=== PATIENT | male | born 1975 | race Caucasian/White ===

== ENCOUNTER → 2016-08-30 | Outpatient (REF) | payer BC ==
[2016-08-30 12:03] LABS: ALBUMIN/GLOBULIN RATIO 1.14 (1.00-1.93); ALKALINE PHOSPHATASE 61 U/L (45-117); ALT/SGPT 24 U/L (12-78); ANION GAP 10 MEQ/L (8-16); AST/SGOT 28 U/L (15-37); BILIRUBIN,TOTAL 0.4 MG/DL (0.2-1.0); BLOOD UREA NITROGEN 13 MG/DL (7-18); CALCIUM LEVEL 8.4 MG/DL (8.5-10.1); CARBON DIOXIDE LEVEL 28 MEQ/L (21-32); CHLORIDE LEVEL 103 MEQ/L (98-107); CHOLESTEROL LEVEL 180 MG/DL (<200); CREATININE FOR GFR 1.14 MG/DL (0.70-1.30); GLOMERULAR FILTRATION RATE > 60.0 (>60); GLUCOSE, FASTING 95 MG/DL (70-105); SODIUM LEVEL 141 MEQ/L (136-145); TOTAL PROTEIN 7.5 GM/DL (6.4-8.2); TRIGLYCERIDES LEVEL 559 MG/DL (<150)
== END ==
LOC: M SFHCCLAY 07:14
PROVIDERS: ATTEND Family Medicine
DX: Z00.00 Encounter for general adult medical examination without abnormal findings (principal); Z83.3 Family history of diabetes mellitus

== ENCOUNTER → 2016-10-12 | Outpatient (REF) | payer BC ==
[2016-10-12 11:58] LABS: ALBUMIN 4.4 GM/DL (3.2-5.2); ALBUMIN/GLOBULIN RATIO 1.22 (1.00-1.93); ALKALINE PHOSPHATASE 56 U/L (45-117); ALT/SGPT 26 U/L (12-78); ANION GAP 5 MEQ/L (8-16); AST/SGOT 19 U/L (15-37); BILIRUBIN,TOTAL 0.6 MG/DL (0.2-1.0); BLOOD UREA NITROGEN 16 MG/DL (7-18); CARBON DIOXIDE LEVEL 30 MEQ/L (21-32); CHLORIDE LEVEL 104 MEQ/L (98-107); CHOLESTEROL LEVEL 175 MG/DL (<200); CREATININE FOR GFR 1.24 MG/DL (0.70-1.30); GLOMERULAR FILTRATION RATE > 60.0 (>60); GLUCOSE, FASTING 97 MG/DL (70-105); SODIUM LEVEL 139 MEQ/L (136-145); TRIGLYCERIDES LEVEL 271 MG/DL (<150)
== END ==
LOC: M SFHCCLAY 07:07
PROVIDERS: ATTEND Family Medicine
DX: E78.2 Mixed hyperlipidemia (principal)

== ENCOUNTER → 2017-02-17 | Outpatient (REF) | payer BC ==
[2017-02-17 11:46] LABS: ALBUMIN 4.1 GM/DL (3.2-5.2); ALBUMIN/GLOBULIN RATIO 1.24 (1.00-1.93); ALKALINE PHOSPHATASE 52 U/L (45-117); ALT/SGPT 23 U/L (12-78); ANION GAP 7 MEQ/L (8-16); AST/SGOT 21 U/L (15-37); BILIRUBIN,TOTAL 0.4 MG/DL (0.2-1.0); BLOOD UREA NITROGEN 15 MG/DL (7-18); CALCIUM LEVEL 8.8 MG/DL (8.5-10.1); CARBON DIOXIDE LEVEL 28 MEQ/L (21-32); CHLORIDE LEVEL 105 MEQ/L (98-107); CHOLESTEROL LEVEL 169 MG/DL (<200); CREATININE FOR GFR 1.15 MG/DL (0.70-1.30); GLOMERULAR FILTRATION RATE > 60.0 (>60); GLUCOSE, FASTING 99 MG/DL (70-105); POTASSIUM SERUM 4.1 MEQ/L (3.5-5.1); SODIUM LEVEL 140 MEQ/L (136-145); TOTAL PROTEIN 7.4 GM/DL (6.4-8.2); TRIGLYCERIDES LEVEL 471 MG/DL (<150)
== END ==
LOC: M SFHCCLAY 07:03
PROVIDERS: ATTEND Family Medicine
DX: E78.2 Mixed hyperlipidemia (principal)

== ENCOUNTER → 2017-06-14 | Outpatient (REF) | payer BC ==
[2017-06-14 12:40] LABS: ALBUMIN 4.1 GM/DL (3.2-5.2); ALBUMIN/GLOBULIN RATIO 1.32 (1.00-1.93); ALKALINE PHOSPHATASE 37 U/L (45-117); ALT/SGPT 24 U/L (12-78); ANION GAP 6 MEQ/L (8-16); AST/SGOT 20 U/L (15-37); BILIRUBIN,TOTAL 0.5 MG/DL (0.2-1.0); BLOOD UREA NITROGEN 18 MG/DL (7-18); CALCIUM LEVEL 8.9 MG/DL (8.5-10.1); CARBON DIOXIDE LEVEL 27 MEQ/L (21-32); CHLORIDE LEVEL 106 MEQ/L (98-107); CHOLESTEROL LEVEL 178 MG/DL (<200); CREATININE FOR GFR 1.32 MG/DL (0.70-1.30); GLOMERULAR FILTRATION RATE > 60.0 (>60); GLUCOSE, FASTING 103 MG/DL (70-105); POTASSIUM SERUM 4.3 MEQ/L (3.5-5.1); SODIUM LEVEL 139 MEQ/L (136-145); TOTAL PROTEIN 7.2 GM/DL (6.4-8.2); TRIGLYCERIDES LEVEL 223 MG/DL (<150)
== END ==
LOC: M SFHCCLAY 07:10
PROVIDERS: ATTEND Family Medicine
DX: Z00.00 Encounter for general adult medical examination without abnormal findings (principal); E78.2 Mixed hyperlipidemia; Z83.3 Family history of diabetes mellitus

== ENCOUNTER → 2018-08-09 | Outpatient (REF) | payer BC ==
[2018-08-09 11:44] LABS: ALBUMIN/GLOBULIN RATIO 1.21 (1.00-1.93); ALKALINE PHOSPHATASE 46 U/L (45-117); ALT/SGPT 24 U/L (12-78); ANION GAP 6 MEQ/L (8-16); AST/SGOT 23 U/L (7-37); BILIRUBIN,TOTAL 0.4 MG/DL (0.2-1.0); BLOOD UREA NITROGEN 14 MG/DL (7-18); CALCIUM LEVEL 8.5 MG/DL (8.5-10.1); CARBON DIOXIDE LEVEL 28 MEQ/L (21-32); CHLORIDE LEVEL 106 MEQ/L (98-107); CHOLESTEROL LEVEL 165 MG/DL (<200); CHOLESTEROL RISK RATIO 4.852 (<5); GLOMERULAR FILTRATION RATE > 60.0 (>60); GLUCOSE, FASTING 95 MG/DL (70-100); HDL CHOLESTEROL 34 MG/DL (>40); LDL CHOLESTEROL 95 MG/DL (<100); NON-HDL-C 131 MG/DL; POTASSIUM SERUM 4.3 MEQ/L (3.5-5.1); SODIUM LEVEL 140 MEQ/L (136-145); TOTAL PROTEIN 7.3 GM/DL (6.4-8.2); TRIGLYCERIDES LEVEL 181 MG/DL (<150)
[2018-08-09 12:04] LABS: ESTIMATED AVERAGE GLUCOSE 114 MG/DL (60-110); HEMOGLOBIN A1c 5.6 %
== END ==
LOC: M SFHCCLAY 07:17
DX: E78.2 Mixed hyperlipidemia (principal); R73.01 Impaired fasting glucose
CPT/HCPCS: 80053

== ENCOUNTER → 2018-08-23 | Outpatient (CLI) | payer BC ==
--- NOTE | 2018-08-23 16:24 | REP ---
BILATERAL HIP SERIES: AP and frog leg views of the bilateral hips were performed. There is no acute fracture or dislocation bilaterally. There is mild joint space narrowing and subchondral sclerosis indicating mild bilateral arthritic change in a fairly symmetrical pattern. There is also a small calcific density at the superolateral acetabular margin bilaterally representing either unfused ossicles or small amount of labral calcification. IMPRESSION: Mild bilateral degenerative changes.
== END ==
LOC: M CLY 15:08
PROVIDERS: ATTEND Family Medicine
DX: M25.551 Pain in right hip (principal); M25.552 Pain in left hip

== ENCOUNTER → 2019-06-27 | Outpatient (REF) | payer BC ==
[2019-06-27 12:27] LABS: ALBUMIN 4.2 GM/DL (3.2-5.2); ALT/SGPT 31 U/L (12-78); BILIRUBIN,TOTAL 0.5 MG/DL (0.2-1.0); BLOOD UREA NITROGEN 23 MG/DL (7-18); CALCIUM LEVEL 9.2 MG/DL (8.5-10.1); CARBON DIOXIDE LEVEL 27 MEQ/L (21-32); CHLORIDE LEVEL 109 MEQ/L (98-107); CHOLESTEROL LEVEL 189 MG/DL (<200); CHOLESTEROL RISK RATIO 4.725 (<5); CREATININE FOR GFR 1.17 MG/DL (0.70-1.30); GLOMERULAR FILTRATION RATE > 60.0 (>60); GLUCOSE, FASTING 108 MG/DL (70-100); HDL CHOLESTEROL 40 MG/DL (>40); LDL CHOLESTEROL 117 MG/DL (<100); NON-HDL-C 149 MG/DL; POTASSIUM SERUM 4.6 MEQ/L (3.5-5.1); SODIUM LEVEL 141 MEQ/L (136-145); TOTAL PROTEIN 7.5 GM/DL (6.4-8.2); TRIGLYCERIDES LEVEL 158 MG/DL (<150)
[2019-06-27 14:33] LABS: HEMOGLOBIN A1c 5.5 %
== END ==
LOC: M SFHCCLAY 07:13
PROVIDERS: ATTEND Family Medicine
DX: R73.01 Impaired fasting glucose (principal); E78.2 Mixed hyperlipidemia

== ENCOUNTER → 2020-04-11 | Outpatient (CLI) | payer OTHER, BC | LOC: M LABSMTC 09:10 | PROVIDERS: ATTEND Orthopaedic Surgery | DX: Z11.59 Encounter for screening for other viral diseases (principal) | CPT/HCPCS: C9803; U0003 ==

== ENCOUNTER → 2020-10-29 | Outpatient (REF) | payer BC ==
[2020-10-29 11:54] LABS: FREE T4 0.92 NG/DL (0.76-1.46); THYROID STIMULATING HORMONE 0.941 uIU/ML (0.358-3.740); TOTAL T3 104.7 NG/DL (60.0-181.0)
[2020-10-29 15:27] LABS: HEMOGLOBIN A1c 5.2 %
[2020-10-30 16:08] LABS: TESTOSTERONE FREE (DIRECT) 11.8 pg/mL (6.8-21.5)
== END ==
LOC: M SFHCCLAY 08:12
PROVIDERS: ATTEND Family Medicine
DX: R23.2 Flushing (principal); R63.4 Abnormal weight loss; R73.01 Impaired fasting glucose

== ENCOUNTER 2020-11-30 22:50 | Inpatient (IN) | payer BC ==
[~2020-11-30] VITALS: Ht 182.9 cm; Wt 3.0 kg
--- NOTE | 2020-11-30 23:20 | ED PDOC ---
Post-Departure Follow-Up DR BYRNES AT BEDSIDE UPON PATIENT ARRIVAL TO ED. NO [facility] VALDEMAR CABRAL, DO Nov 30, 2020 23:20
[2020-11-30 23:25] LABS: BASO % 0.3 % (0.0-1.0); EOS # 0.1 10^3/uL (0.0-0.5); EOS % 1.2 % (0.0-3.0); HEMATOCRIT 40.3 % (42.0-52.0); HEMOGLOBIN 13.3 g/dl (13.5-17.5); LYMPH % 17.4 % (24.0-44.0); MEAN CORPUSCULAR HEMOGLOBIN 29.4 pg (27.0-33.0); MEAN CORPUSCULAR VOLUME 89.2 fl (80.0-96.0); MONO # 0.6 10^3/uL (0.0-0.8); MONO % 4.9 % (2.0-8.0); NEUTROPHILS # 8.7 10^3/uL (1.5-8.5); NEUTROPHILS % 75.8 % (36.0-66.0); PLATELET COUNT, AUTOMATED 155 10^3/uL (150-450); RED BLOOD COUNT 4.52 10^6/uL (4.30-6.10); WHITE BLOOD COUNT 11.4 10^3/uL (4.0-10.0)
[2020-11-30] MEDS ORDERED: FENO1CAP16 PO (23:45)
[2020-11-30] MEDS ORDERED: FENO160T10 PO (23:54)
[2020-11-30] MEDS ORDERED: ACETAMINOPHEN TAB 650MG DOSE (2X325MG) PO PRN (23:55)
[2020-11-30] MEDS ORDERED: ONDANSETRON 4 MG TAB PO PRN (23:55)
[2020-11-30] MEDS ORDERED: ONDANSETRON 4MG/2ML VIAL IV PRN (23:55)
[2020-11-30] MEDS ORDERED: cefTRIAXone SOD 1 GM in D5W MINI-BAG PLUS 50 ML IV ONE (23:55)
[2020-11-30 23:58] LABS: ALBUMIN 3.8 GM/DL (3.2-5.2); ALT/SGPT 17 U/L (12-78); BILIRUBIN,DIRECT 0.1 MG/DL (0.0-0.2); BILIRUBIN,TOTAL 0.4 MG/DL (0.2-1.0); BLOOD UREA NITROGEN 10 MG/DL (7-18); CALCIUM LEVEL 8.1 MG/DL (8.5-10.1); CARBON DIOXIDE LEVEL 26 MEQ/L (21-32); CHLORIDE LEVEL 109 MEQ/L (98-107); CREATININE FOR GFR 0.98 MG/DL (0.70-1.30); GLOMERULAR FILTRATION RATE > 60.0 (>60); GLUCOSE, FASTING 94 MG/DL (70-100); LIPASE 70 U/L (73-393); POTASSIUM SERUM 3.8 MEQ/L (3.5-5.1); SODIUM LEVEL 141 MEQ/L (136-145); TOTAL PROTEIN 6.6 GM/DL (6.4-8.2)
[2020-12-01 00:17] LABS: RSV AMPLIFICATION NEGATIVE (NEGATIVE)
[2020-12-01] MEDS: NS 1,000 ML IV SCH ×4 (00:26→21:47)
[2020-12-01] MEDS: MORPHINE 2 MG/ML 1ML VIAL (J2270) IV PRN ×5 (00:27→21:46)
[2020-12-01 01:05] VITALS: BP 138/80
[2020-12-01] MEDS: metroNIDAZOLE 500 MG in IV 1 EA IV SCH ×3 (02:15→17:39)
[2020-12-01] MEDS: CIPROFLOXACIN 400 MG in IV 1 EA IV SCH ×2 (03:59→15:32)
[2020-12-01 06:00] VITALS: BP 125/73
[2020-12-01 06:47] LABS: HEMATOCRIT 38.7 % (42.0-52.0); HEMOGLOBIN 12.4 g/dl (13.5-17.5); MEAN CORPUSCULAR VOLUME 90.4 fl (80.0-96.0); PLATELET COUNT, AUTOMATED 138 10^3/uL (150-450); RED BLOOD COUNT 4.28 10^6/uL (4.30-6.10); WHITE BLOOD COUNT 7.5 10^3/uL (4.0-10.0)
[2020-12-01 07:10] LABS: BLOOD UREA NITROGEN 10 MG/DL (7-18); CALCIUM LEVEL 7.5 MG/DL (8.5-10.1); CARBON DIOXIDE LEVEL 26 MEQ/L (21-32); CHLORIDE LEVEL 110 MEQ/L (98-107); CREATININE FOR GFR 0.99 MG/DL (0.70-1.30); GLOMERULAR FILTRATION RATE > 60.0 (>60); GLUCOSE, FASTING 97 MG/DL (70-100); POTASSIUM SERUM 3.7 MEQ/L (3.5-5.1); SODIUM LEVEL 140 MEQ/L (136-145)
[2020-12-01] MEDS: PANTOPRAZOLE 40MG VIAL (C9113 PER 1) IV SCH (08:21)
--- NOTE | 2020-12-01 09:03 | HPE ---
HISTORY AND PHYSICAL DATE OF ADMISSION: 11/30/2020 CHIEF COMPLAINT: Diverticulitis. BRIEF HISTORY OF PRESENT ILLNESS: The patient is a 45-year-old male who presents with 24 hour history of abdominal pain. He has had several episodes of diverticulitis in the past. This episode seemed to be worse, however has not gotten any worse since earlier today. He has not had any fevers or chills. He has not been tachycardic and no hypotension. He was seen at an Urgent Care and they did not have access to imaging, thus was referred to [facility] where he underwent a CT scan of the abdomen and pelvis and after several hours was diagnosed with evidence of diverticular perforation with some air outside the bowel lumen. He states that all of his abdominal pain, however has been in the left lower quadrant and has continued to be in that area. PAST MEDICAL HISTORY: Significant for a history of knee surgery, history of back surgery, history of hypertriglyceridemia. MEDICATIONS: Fenofibrate. ALLERGIES: Toradol and Tramadol. PHYSICAL EXAMINATION: A 45-year-old male who looks stated age. HEENT is unremarkable. Neck is supple without adenopathy. Lungs are clear to auscultation without crackles, wheezes or rhonchi. Heart is regular. Abdomen is softly distended, tympanitic in the epigastric area and the right side of the abdomen. It really is not tender nor is the epigastric area. All of his tenderness is in the left lower quadrant with some guarding and localized peritoneal signs. Extremities are warm and well-perfused. IMPRESSION/PLAN: Patient has evidence of diverticulitis, however given his presentation, overall he states he has not had any progression of his symptoms. I have discussed with him several options, one of which is to proceed with operative intervention at this time and most likely proceeding with a colectomy/colostomy and reversal of that at some point in the ensuing few months. Otherwise, I have offered him the possibility of antibiotic treatment, will see how he does at this point and observe him over the ensuing few hours as well. If he has progression of this disease or symptoms, we can still bring him to the Operating Room but I have instructed him and his who is on the phone that our goal is to avoid any sepsis or progression of infection. He understands that he will probably need a prolonged hospital stay given the amount of infection present and that he has a very high likelihood of having an abscess develop that may need percutaneous drainage and still may end up with operative intervention with colectomy and colostomy. He understands the current plan and will start with antibiotics at this time and see how he is doing. His white count did drop from 14.3 at the outside hospital down to 11.9 here today. We will get some follow-up labs in the morning and continue with aggressive antibiotic treatment with fluid resuscitation.
[2020-12-01 10:00] VITALS: BP 113/67
--- NOTE | 2020-12-01 11:40 | IPN ---
PROGRESS NOTE DATE: 12/01/2020 SUBJECTIVE: The patient was admitted in the middle of the night last night for diverticulitis with perforation and at that time his white count had dropped from [facility] to here down to 11.9 and he was complaining of localized left sided pain. Since that time, his white count has dropped again down to 7.5 and he has been afebrile. He has had good urine output and he complains of pain still in the left lower quadrant which is crampy at times, severe at times but then settles down. He states the rest of his abdomen is not causing pain or discomfort and he feels a little less distended than he did last night. OBJECTIVE: The right side of the abdomen is distended and tympanitic but not tender. No guarding. No rebound. No peritoneal signs appreciated all across the right side of the abdomen, epigastric area and the left upper quadrant, however in the left lower quadrant he still has some tenderness and pain and some guarding in this area consistent with last night although I do feel this is mildly improved. IMPRESSION/PLAN: Patient seems to have had some improvement with at least laboratory and some very minimal improvement clinically but definitely no progression of his disease or progression of his perforation that I can see at this point. Given the current findings and his overall status and he seems to be moving around adequately at this time I do feel that we will keep him NPO, IV fluids, IV antibiotics and will see how he does. I had this discussion with him again concerning his current position and our plan for nonoperative treatment, discussing the pros and cons of operative intervention including colectomy, colostomy, etc. He understands and would like to continue on our current course as well.
[2020-12-01 14:00] VITALS: BP 111/64
[2020-12-01 18:00] VITALS: BP 114/64
[2020-12-01 22:00] VITALS: BP 113/60
[2020-12-02] MEDS ORDERED: metroNIDAZOLE/NACL 500MG(5MG/ML) 100ML BAG (S0030) As Ordered ONE (01:49)
[2020-12-02] MEDS: metroNIDAZOLE 500 MG in IV 1 EA IV SCH ×3 (02:56→17:56)
[2020-12-02] MEDS: CIPROFLOXACIN 400 MG in IV 1 EA IV SCH ×2 (03:03→16:08)
[2020-12-02] MEDS: MORPHINE 2 MG/ML 1ML VIAL (J2270) IV PRN ×2 (03:07→21:47)
[2020-12-02] MEDS: NS 1,000 ML IV SCH (03:07)
[2020-12-02 06:00] VITALS: BP 130/65
[2020-12-02 06:14] LABS: HEMATOCRIT 37.7 % (42.0-52.0); MEAN CORPUSCULAR HGB CONC 31.8 g/dl (32.0-36.5); MEAN CORPUSCULAR VOLUME 91.1 fl (80.0-96.0); PLATELET COUNT, AUTOMATED 129 10^3/uL (150-450); RED BLOOD COUNT 4.14 10^6/uL (4.30-6.10); WHITE BLOOD COUNT 6.8 10^3/uL (4.0-10.0)
[2020-12-02 06:41] LABS: BLOOD UREA NITROGEN 9 MG/DL (7-18); CALCIUM LEVEL 8.3 MG/DL (8.5-10.1); CARBON DIOXIDE LEVEL 28 MEQ/L (21-32); CHLORIDE LEVEL 109 MEQ/L (98-107); CREATININE FOR GFR 1.04 MG/DL (0.70-1.30); GLOMERULAR FILTRATION RATE > 60.0 (>60); GLUCOSE, FASTING 83 MG/DL (70-100); POTASSIUM SERUM 3.7 MEQ/L (3.5-5.1); SODIUM LEVEL 139 MEQ/L (136-145)
[2020-12-02] MEDS: PANTOPRAZOLE 40MG VIAL (C9113 PER 1) IV SCH (09:17)
[2020-12-02 14:00] VITALS: BP 121/66
[2020-12-02 22:00] VITALS: BP 136/79
[2020-12-03 02:00] VITALS: BP 114/65
[2020-12-03] MEDS: metroNIDAZOLE 500 MG in IV 1 EA IV SCH ×3 (02:16→17:20)
[2020-12-03] MEDS: CIPROFLOXACIN 400 MG in IV 1 EA IV SCH ×2 (03:39→15:02)
[2020-12-03 05:54] VITALS: BP 118/68
[2020-12-03 07:57] LABS: HEMATOCRIT 37.3 % (42.0-52.0); HEMOGLOBIN 12.3 g/dl (13.5-17.5); MEAN CORPUSCULAR HEMOGLOBIN 29.1 pg (27.0-33.0); MEAN CORPUSCULAR VOLUME 88.2 fl (80.0-96.0); PLATELET COUNT, AUTOMATED 145 10^3/uL (150-450); RED BLOOD COUNT 4.23 10^6/uL (4.30-6.10); WHITE BLOOD COUNT 6.4 10^3/uL (4.0-10.0)
[2020-12-03 08:19] LABS: BLOOD UREA NITROGEN 9 MG/DL (7-18); CALCIUM LEVEL 8.7 MG/DL (8.5-10.1); CARBON DIOXIDE LEVEL 25 MEQ/L (21-32); CHLORIDE LEVEL 109 MEQ/L (98-107); CREATININE FOR GFR 0.97 MG/DL (0.70-1.30); GLOMERULAR FILTRATION RATE > 60.0 (>60); GLUCOSE, FASTING 98 MG/DL (70-100); SODIUM LEVEL 140 MEQ/L (136-145)
[2020-12-03] MEDS: PANTOPRAZOLE 40MG VIAL (C9113 PER 1) IV SCH (08:29)
[2020-12-03 10:00] VITALS: BP 123/70
[2020-12-03 14:00] VITALS: BP 121/71
[2020-12-03 18:00] VITALS: BP 130/75
[2020-12-03 20:48] VITALS: BP 122/71
[2020-12-04] MEDS: metroNIDAZOLE 500 MG in IV 1 EA IV SCH (01:42)
[2020-12-04 01:44] VITALS: BP 121/72
[2020-12-04] MEDS: CIPROFLOXACIN 400 MG in IV 1 EA IV SCH (03:01)
[2020-12-04 06:00] VITALS: BP 123/72
[2020-12-04 07:05] LABS: HEMATOCRIT 37.6 % (42.0-52.0); HEMOGLOBIN 12.6 g/dl (13.5-17.5); MEAN CORPUSCULAR HEMOGLOBIN 29.5 pg (27.0-33.0); MEAN CORPUSCULAR HGB CONC 33.5 g/dl (32.0-36.5); MEAN CORPUSCULAR VOLUME 88.1 fl (80.0-96.0); PLATELET COUNT, AUTOMATED 165 10^3/uL (150-450); RED BLOOD COUNT 4.27 10^6/uL (4.30-6.10)
[2020-12-04 07:30] LABS: BLOOD UREA NITROGEN 10 MG/DL (7-18); CALCIUM LEVEL 8.6 MG/DL (8.5-10.1); CARBON DIOXIDE LEVEL 24 MEQ/L (21-32); CHLORIDE LEVEL 111 MEQ/L (98-107); GLOMERULAR FILTRATION RATE > 60.0 (>60); GLUCOSE, FASTING 96 MG/DL (70-100); SODIUM LEVEL 142 MEQ/L (136-145)
[2020-12-04] MEDS ORDERED: METR-265 PO (08:18)
[2020-12-04] MEDS ORDERED: CIPR-249 PO (08:18)
--- NOTE | 2020-12-04 08:33 | IPN ---
PROGRESS NOTE DATE: 12/02/2020 SUBJECTIVE: The patient's white count again is normalized at 6.8, seems to be doing well from a physical exam standpoint and pain standpoint slowly but improving. Vitals have been stable. I and O's reveal a good urine output and he is developing some flatus. He is hoping to advance his diet. OBJECTIVE: Abdomen is less distended than it was yesterday without guarding, without rebound, without peritoneal signs. Still mildly distended with some tympany but tenderness is still localized to the left side. The left lower quadrant area is pin machine tender throughout this area but less than it was yesterday. IMPRESSION/PLAN: Patient has resolving diverticulitis since he has had some flatus and he looks clinically better, I do feel that it is reasonable to start him on a clear liquid diet. However, I do feel that he is still at higher risk for postoperative abscess and will watch him closely and slowly advance his diet. At this point, will see how he does over the ensuing 24 hours determining his next course of action/recommendations based on this.
[2020-12-04] MEDS ORDERED: PANTOPRAZOLE 40MG TAB (PROTONIX) PO SCH (09:00)
--- NOTE | 2020-12-04 09:33 | IPN ---
PROGRESS NOTE DATE: 12/03/2020 SUBJECTIVE: The patient's white count continues to be normalized. His vitals have been stable and afebrile. Good urine output, more flatus and overall feels better each day. OBJECTIVE: His abdomen is having decreased distention, decreasing tenderness and much less than it was at the time of admission and continues to be clinically improving on a daily basis. IMPRESSION/PLAN: Patient has resolving diverticulitis. At this point my recommendation is to continue with IV antibiotics. Will start him on a full liquid diet, advance him to a low residue diet when he feels he is tolerating the full liquid diet well and probably discharge to home tomorrow. We have had a long discussion concerning follow-up studies, etc and at this point with a normalized white count and decreasing pain on a daily basis and clinical improvement, I do feel we can forgo repeat x-rays unless we have an increasing white count or fevers, then I would recommend repeating the CT scan. The patient understands and will see how he does over the next 24 hours.
--- NOTE | 2020-12-04 09:49 | DSES ---
DISCHARGE SUMMARY DATE OF ADMISSION: 11/30/2020 DATE OF DISCHARGE: 12/04/2020 PRINCIPAL DIAGNOSIS: 1. Perforated diverticulitis. ASSOCIATED DIAGNOSIS: 1. History of orthopedic surgery. 2. Back surgery. 3. Knee surgery. 4. History of triglyceridemia. HISTORY OF PRESENT ILLNESS: Patient is a 45-year-old male who has had diverticulitis in the past, however developed significant pain and discomfort 24 hours prior to admission. It seemed to get worse earlier on the day of admission about noon. Since that time, he went to Urgent Care and then went to [facility], had a CT scan and showed some air bubbles outside the lumen consistent with a perforation, however presents with not generalized peritonitis but localized peritonitis in the left lower quadrant. HOSPITAL COURSE SUMMARY: The patient was admitted with the above diagnosis and after a long discussion and evaluation the patient was treated with IV fluids, IV antibiotics and over the ensuing few hours had some mild improvement, however 24 hours later the patient had progressive significant improvement and continued to have improvement on a daily basis. His white count normalized on the second hospital day and he started having flatus, his diet was slowly progressed and he was tolerating a low residue diet at the time of discharge. He was discharged home on Cipro and Flagyl as well as his usual medications. He has a follow-up with GI next week to schedule a colonoscopy and follow-up with General Surgery in 2-3 weeks for reevaluation. He is to return to the office or the Emergency Room if he has increasing pain, discomfort, fevers or chills.
== END 2020-12-04 10:32 | disposition home or self-care (01) | DRG 244 ==
LOC: M ED 22:50 → M ED INP 23:54 → ENRESERV 12-01 00:57 → M MS5PR 12-01 01:05
PROVIDERS: ADMIT Surgery; ATTEND Surgery
DX: K57.20 Diverticulitis of large intestine with perforation and abscess without bleeding (principal)

== ENCOUNTER 2021-01-22 17:20 | Emergency (ER) | payer BC ==
[~2021-01-22] VITALS: Ht 182.9 cm; Wt 89.2 kg
[~2021-01-22 17:20] MED LIST: CIPR-249 PO; FENO160T10 PO; FENO1CAP16 PO; METR-265 PO
[2021-01-22 19:38] LABS: BASO % 0.2 % (0.0-1.0); EOS # 0.1 10^3/uL (0.0-0.5); EOS % 0.9 % (0.0-3.0); HEMATOCRIT 47.7 % (42.0-52.0); HEMOGLOBIN 15.8 g/dl (13.5-17.5); LYMPH # 1.8 10^3/uL (1.5-5.0); LYMPH % 13.7 % (24.0-44.0); MEAN CORPUSCULAR HEMOGLOBIN 29.4 pg (27.0-33.0); MEAN CORPUSCULAR HGB CONC 33.1 g/dl (32.0-36.5); MEAN CORPUSCULAR VOLUME 88.7 fl (80.0-96.0); MONO # 0.6 10^3/uL (0.0-0.8); MONO % 4.5 % (2.0-8.0); NEUTROPHILS # 10.4 10^3/uL (1.5-8.5); NEUTROPHILS % 80.3 % (36.0-66.0); PLATELET COUNT, AUTOMATED 184 10^3/uL (150-450); RED BLOOD COUNT 5.38 10^6/uL (4.30-6.10); WHITE BLOOD COUNT 12.9 10^3/uL (4.0-10.0)
[2021-01-22 20:09] LABS: ALBUMIN 4.2 GM/DL (3.2-5.2); ALT/SGPT 35 U/L (12-78); BILIRUBIN,DIRECT 0.2 MG/DL (0.0-0.2); BILIRUBIN,TOTAL 0.9 MG/DL (0.2-1.0); BLOOD UREA NITROGEN 10 MG/DL (7-18); CALCIUM LEVEL 9.2 MG/DL (8.5-10.1); CARBON DIOXIDE LEVEL 25 MEQ/L (21-32); CHLORIDE LEVEL 106 MEQ/L (98-107); CREATININE FOR GFR 0.95 MG/DL (0.70-1.30); GLOMERULAR FILTRATION RATE > 60.0 (>60); GLUCOSE, FASTING 86 MG/DL (70-100); LIPASE 45 U/L (73-393); SODIUM LEVEL 139 MEQ/L (136-145); TOTAL PROTEIN 7.8 GM/DL (6.4-8.2)
[2021-01-22] MEDS ORDERED: ISOVUE-370 76% 100ML VIAL As Ordered ONE (20:28)
[2021-01-22] MEDS ORDERED: ONDANSETRON 4MG/2ML VIAL IV ONE (20:30)
[2021-01-22] MEDS ORDERED: MORPHINE 4 MG/ML 1ML VIAL/SYRINGE (J2270) IV PRN (20:30)
--- NOTE | 2021-01-22 21:00 | REPVR ---
PROCEDURE INFORMATION: Exam: CT Abdomen And Pelvis With Contrast Exam date and time: 01/22/2021 8:38 PM Age: 45 years old Clinical indication: Abdominal pain; Localized; Left lower quadrant (llq); Additional info: Llq abd pain, w/ peritoneal signs, eval for perf TECHNIQUE: Imaging protocol: Computed tomography of the abdomen and pelvis with contrast. Radiation optimization: All CT scans at this facility use at least one of these dose optimization techniques: automated exposure control; mA and/or kV adjustment per patient size (includes targeted exams where dose is matched to clinical indication); or iterative reconstruction. Contrast material: ISOVUE 370; Contrast volume: 100 ml; Contrast route: INTRAVENOUS (IV); COMPARISON: CR HIP COMPLETE (AP/LAT) 08/23/2018 3:13 PM FINDINGS: Liver: There is a diffuse decrease in hepatic parenchymal density, consistent with steatosis. Gallbladder and bile ducts: Normal. No calcified stones. No ductal dilation. Pancreas: Normal. No ductal dilation. Spleen: Normal. No splenomegaly. Adrenal glands: Normal. No mass. Kidneys and ureters: Simple cyst right kidney measures 1.9 cm. No follow-up necessary. Kidneys otherwise unremarkable. Stomach and bowel: Unremarkable. No obstruction. No mucosal thickening. Appendix: No evidence of appendicitis. Intraperitoneal space: There is a segment of acute inflammation in the distal left colon and adjacent pericolonic fat without evidence of a drainable abscess or free air, consistent with acute diverticulitis. Vasculature: Unremarkable. No abdominal aortic aneurysm. Lymph nodes: Unremarkable. No enlarged lymph nodes. Urinary bladder: Unremarkable as visualized. Reproductive: The prostate gland demonstrates mild hyperplasia. Bones/joints: Mild retrolisthesis of L5 on S1. Soft tissues: Small left inguinal hernia without incarceration. IMPRESSION: 1. There is a diffuse decrease in hepatic parenchymal density, consistent with steatosis. 2. There is a segment of acute inflammation in the distal left colon and adjacent pericolonic fat without evidence of a drainable abscess or free air, consistent with acute diverticulitis. 3. Mild prostatic hyperplasia. COMMENTS: Consistent with the [employer]'s Incidental Findings Committee white paper (J Am Deneen Radiol 2018): Any incidental renal lesion less than 1 cm or classified as too small to characterize, or any incidental cystic renal lesion characterized as simple-appearing, is likely benign. No follow-up imaging is recommended for these lesions per consensus recommendations based on imaging criteria. Electronically signed by: Umberto Germain On 01/22/2021 21:00:15 PM
[2021-01-22] MEDS ORDERED: CIPR-249 PO (21:59)
[2021-01-22] MEDS ORDERED: FLAG500T PO (21:59)
[2021-01-22 22:00] VITALS: BP 115/70
[2021-01-22] MEDS ORDERED: CIPROFLOXACIN 500MG TABLET PO ONE (22:00)
[2021-01-22] MEDS ORDERED: OXYCODONE/APAP 5MG/325MG(BULK FOR ED) 1 TABLET PO ONE (22:00)
[2021-01-22] MEDS ORDERED: metroNIDAZOLE (FLAGYL) 500MG TABLET PO ONE (22:00)
--- NOTE | 2021-01-23 09:43 | ED PDOC ---
Post-Departure Follow-Up radiology repor tfaxed to Viv Sánchez MD January 23, 2021 09:43
== END 2021-01-22 22:23 | disposition home or self-care (01) ==
LOC: M ED 17:20
DX: K57.32 Diverticulitis of large intestine without perforation or abscess without bleeding (principal); N40.0 Benign prostatic hyperplasia without lower urinary tract symptoms; E78.5 Hyperlipidemia, unspecified; F17.220 Nicotine dependence, chewing tobacco, uncomplicated; Z88.6 Allergy status to analgesic agent; Z79.899 Other long term (current) drug therapy
CPT/HCPCS: 74177; 80048; 80076; 83605; 83690; 85025; 87040; 96374; 96375; 99284; J2270; J2405; Q9967

== ENCOUNTER → 2021-02-06 | Outpatient (CLI) | payer BC ==
[~2021-02-06] MED LIST changes: +FLAG500T PO
== END ==
LOC: M LABSMTC 11:21
PROVIDERS: ATTEND Anesthesiology
DX: Z01.812 Encounter for preprocedural laboratory examination (principal); Z20.822 Contact with and (suspected) exposure to COVID-19

== ENCOUNTER 2021-02-11 10:28 | Day surgery (SDC) | payer BC ==
[~2021-02-11] VITALS: Ht 182.9 cm; Wt 85.9 kg
[~2021-02-11 10:28] MED LIST changes: +NS 1,000 ML IV ONE
[2021-02-11] MEDS ORDERED: propofoL 200 MG/20 ML VIAL As Ordered ONE (11:54)
[2021-02-11] MEDS ORDERED: LIDOCAINE 2% 100MG/5ML SDV (FOR ANES.) As Ordered ONE (11:54)
[2021-02-11] MEDS ORDERED: fentaNYL 100 MCG/2 ML INJECTION (J3010) As Ordered ONE (11:55)
--- NOTE | 2021-02-11 12:42 | ROOR ---
Patient Name: Sarath Castaneda Procedure Date: 02/11/2021 12:01 PM Date of : 1975 Age: 45 Room: [facility] Gender: Male Note Status: Finalized Procedure: Upper GI endoscopy Indications: Dyspepsia, Weight loss Providers: Richard Royal MD Referring MD: BALTA CAMPBELL DO Requesting Provider: Medicines: Monitored Anesthesia Care Complications: No immediate complications. Procedure: Pre-Anesthesia Assessment: - Prior to the procedure, a History and Physical was performed, and patient medications and allergies were reviewed. The patient is competent. The risks and benefits of the procedure and the sedation options and risks were discussed with the patient. All questions were answered and informed consent was obtained. Patient identification and proposed procedure were verified by the physician, the nurse and the anesthesiologist in the procedure room. Mental Status Examination: alert and oriented. Airway Examination: normal oropharyngeal airway and neck mobility. Respiratory Examination: clear to auscultation. CV Examination: normal. Prophylactic Antibiotics: The patient does not require prophylactic antibiotics. Prior Anticoagulants: The patient has taken no previous anticoagulant or antiplatelet agents. ASA Grade Assessment: II - A patient with mild systemic disease. After reviewing the risks and benefits, the patient was deemed in satisfactory condition to undergo the procedure. The anesthesia plan was to use monitored anesthesia care (MAC). Immediately prior to administration of medications, the patient was re-assessed for adequacy to receive sedatives. The heart rate, respiratory rate, oxygen saturations, blood pressure, adequacy of pulmonary ventilation, and response to care were monitored throughout the procedure. The physical status of the patient was re-assessed after the procedure. The Endoscope was introduced through the mouth, and advanced to the second part of duodenum. The upper GI endoscopy was accomplished without difficulty. The patient tolerated the procedure well. Findings: The examined esophagus was normal. The Z-line was regular and was found at the gastroesophageal junction. Scattered mild inflammation characterized by erythema, friability and granularity was found in the gastric antrum. Biopsies were taken with a cold forceps for Helicobacter pylori testing. Verification of patient identification for the specimen was done by the physician and nurse using the patient's name, date and medical record number. Estimated blood loss was minimal. The duodenal bulb and second portion of the duodenum were normal. Impression: - Normal esophagus. - Z-line regular, at the gastroesophageal junction. - Gastritis. Biopsied. - Normal duodenal bulb and second portion of the duodenum. Recommendation: - Patient has a contact number available for emergencies. The signs and symptoms of potential delayed complications were discussed with the patient. Return to normal activities tomorrow. Written discharge instructions were provided to the patient. - High fiber diet. - Continue present medications. - Await pathology results. - Telephone GI clinic for pathology results in 2 weeks. - Return to primary care physician. Procedure Code(s): --- Professional --- 80556, Esophagogastroduodenoscopy, flexible, transoral; with biopsy, single or multiple Diagnosis Code(s): --- Professional --- K29.70, Gastritis, unspecified, without bleeding R10.13, Epigastric pain R63.4, Abnormal weight loss CPT copyright 2019 [employer]. All rights reserved. The codes documented in this report are preliminary and upon geologist petroleum review may be revised to meet current compliance requirements. Richard Royal MD Richard Royal MD 02/11/2021 12:42:11 PM Electronically signed by Richard Royal MD Number of Addenda: 0 Note Initiated On: 02/11/2021 12:01 PM Estimated Blood Loss: Estimated blood loss was minimal.
--- NOTE | 2021-02-11 13:00 | ROOR ---
Patient Name: Sarath Castaneda Procedure Date: 02/11/2021 12:02 PM Date of : 1975 Age: 45 Room: [facility] Gender: Male Note Status: Finalized Procedure: Colonoscopy Indications: Abnormal CT of the GI tract Providers: Richard Royal MD Referring MD: BALTA CAMPBELL DO Requesting Provider: Medicines: Monitored Anesthesia Care Complications: No immediate complications. Procedure: Pre-Anesthesia Assessment: - Prior to the procedure, a History and Physical was performed, and patient medications and allergies were reviewed. The patient is competent. The risks and benefits of the procedure and the sedation options and risks were discussed with the patient. All questions were answered and informed consent was obtained. Patient identification and proposed procedure were verified by the physician, the nurse and the anesthesiologist in the procedure room. Mental Status Examination: alert and oriented. Airway Examination: normal oropharyngeal airway and neck mobility. Respiratory Examination: clear to auscultation. CV Examination: normal. Prophylactic Antibiotics: The patient does not require prophylactic antibiotics. Prior Anticoagulants: The patient has taken no previous anticoagulant or antiplatelet agents. ASA Grade Assessment: II - A patient with mild systemic disease. After reviewing the risks and benefits, the patient was deemed in satisfactory condition to undergo the procedure. The anesthesia plan was to use monitored anesthesia care (MAC). Immediately prior to administration of medications, the patient was re-assessed for adequacy to receive sedatives. The heart rate, respiratory rate, oxygen saturations, blood pressure, adequacy of pulmonary ventilation, and response to care were monitored throughout the procedure. The physical status of the patient was re-assessed after the procedure. The Colonoscope was introduced through the anus and advanced to the terminal ileum, with identification of the appendiceal orifice and IC valve. The colonoscopy was performed without difficulty. The patient tolerated the procedure well. The quality of the bowel preparation was good. The terminal ileum, ileocecal valve, appendiceal orifice, and rectum were photographed. Scope insertion time was 2 minutes. Scope withdrawal time was 9 minutes. The total duration of the procedure was 12 minutes. Findings: The perianal and digital rectal examinations were normal. The terminal ileum appeared normal. A 10 mm polyp was found in the transverse colon. The polyp was sessile. The polyp was removed with a hot snare. Resection and retrieval were complete. Verification of patient identification for the specimen was done by the physician and nurse using the patient's name, date and medical record number. Estimated blood loss was minimal. Two sessile polyps were found in the descending colon. The polyps were 3 to 6 mm in size. These polyps were removed with a hot snare. Resection and retrieval were complete. Multiple small and large-mouthed diverticula were found from sigmoid to transverse colon. Erythema was seen in association with the diverticular opening. There was no evidence of diverticular bleeding. Two biopsies were obtained in the sigmoid colon with cold forceps for histology. Non-bleeding external and internal hemorrhoids were found during retroflexion. The hemorrhoids were medium-sized. Impression: - The examined portion of the ileum was normal. - One 10 mm polyp in the transverse colon, removed with a hot snare. Resected and retrieved. - Two 3 to 6 mm polyps in the descending colon, removed with a hot snare. Resected and retrieved. - Moderate diverticulosis from sigmoid to transverse colon. Erythema was seen in association with the diverticular opening. There was no evidence of diverticular bleeding. - Non-bleeding external and internal hemorrhoids. - Two biopsies were obtained in the sigmoid colon. Recommendation: - Patient has a contact number available for emergencies. The signs and symptoms of potential delayed complications were discussed with the patient. Return to normal activities tomorrow. Written discharge instructions were provided to the patient. - High fiber diet. - Continue present medications. - Use fiber, for example Citrucel, Fibercon, Konsyl or Metamucil. - Await pathology results. - Repeat colonoscopy in 3 - 5 years for surveillance based on pathology results. - Telephone GI clinic for pathology results in 2 weeks. - Return to GI clinic if persistent symptoms or new symptoms. - Return to primary care physician. Procedure Code(s): --- Professional --- 74262, Colonoscopy, flexible; with removal of tumor(s), polyp(s), or other lesion(s) by snare technique 21194, 59, Colonoscopy, flexible; with biopsy, single or multiple Diagnosis Code(s): --- Professional --- K64.8, Other hemorrhoids K63.5, Polyp of colon K57.30, Diverticulosis of large intestine without perforation or abscess without bleeding R93.3, Abnormal findings on diagnostic imaging of other parts of digestive tract CPT copyright 2019 [employer]. All rights reserved. The codes documented in this report are preliminary and upon owner/photographer review may be revised to meet current compliance requirements. Richard Royal MD Richard Royal MD 02/11/2021 12:59:50 PM Electronically signed by Richard Royal MD Number of Addenda: 0 Note Initiated On: 02/11/2021 12:02 PM Estimated Blood Loss: Estimated blood loss was minimal.
[2021-02-11 13:05] VITALS: BP 123/75
== END 2021-02-11 13:18 | disposition home or self-care (01) ==
LOC: M OPP 10:28
PROVIDERS: ATTEND Internal Medicine Gastroenterology
DX: K63.5 Polyp of colon (principal); K57.80 Diverticulitis of intestine, part unspecified, with perforation and abscess without bleeding; K64.8 Other hemorrhoids; R93.3 Abnormal findings on diagnostic imaging of other parts of digestive tract; K29.70 Gastritis, unspecified, without bleeding; R10.13 Epigastric pain; R63.4 Abnormal weight loss; Z79.899 Other long term (current) drug therapy; Z88.5 Allergy status to narcotic agent; Z88.6 Allergy status to analgesic agent
CPT/HCPCS: 43239; 45380; 45385; 88305; 88313; J3010

== ENCOUNTER → 2021-10-07 | Outpatient (REF) | payer BC ==
[~2021-10-07] MED LIST changes: -NS 1,000 ML IV ONE
[2021-10-07 13:24] LABS: HEMOGLOBIN A1c 5.4 %
[2021-10-07 13:31] LABS: ALT/SGPT 27 U/L (12-78); BILIRUBIN,TOTAL 0.6 MG/DL (0.2-1.0); BLOOD UREA NITROGEN 13 MG/DL (7-18); CALCIUM LEVEL 9.1 MG/DL (8.5-10.1); CARBON DIOXIDE LEVEL 27 MEQ/L (21-32); CHLORIDE LEVEL 105 MEQ/L (98-107); CHOLESTEROL LEVEL 185 MG/DL (<200); CHOLESTEROL RISK RATIO 6.607 (<5); CREATININE FOR GFR 1.09 MG/DL (0.70-1.30); GLOMERULAR FILTRATION RATE > 60.0 (>60); GLUCOSE, FASTING 94 MG/DL (70-100); HDL CHOLESTEROL 28 MG/DL (>40); NON-HDL-C 157 MG/DL; POTASSIUM SERUM 4.5 MEQ/L (3.5-5.1); SODIUM LEVEL 138 MEQ/L (136-145); TOTAL PROTEIN 7.1 GM/DL (6.4-8.2); TRIGLYCERIDES LEVEL 590 MG/DL (<150)
== END ==
LOC: M SFHCCLAY 07:00
PROVIDERS: ATTEND Family Medicine
DX: E78.2 Mixed hyperlipidemia (principal); R73.01 Impaired fasting glucose

== ENCOUNTER → 2023-02-01 | Outpatient (CLI) | payer BC ==
[2023-02-01 13:00] LABS: ALBUMIN 4.4 G/DL (3.2-5.2); ALKALINE PHOSPHATASE 49 U/L (46-116); ALT/SGPT 22 U/L (7.0-40); AST/SGOT 16 U/L (<34); BILIRUBIN,TOTAL 0.4 MG/DL (0.3-1.2); BLOOD UREA NITROGEN 16 MG/DL (9-23); CALCIUM LEVEL 9.3 MG/DL (8.5-10.1); CARBON DIOXIDE LEVEL 29 MMOL/L (20-31); CHLORIDE LEVEL 105 MMOL/L (98-107); CHOLESTEROL LEVEL 172 MG/DL (<200); CHOLESTEROL RISK RATIO 5.83 (<5); CREATININE FOR GFR 1.23 MG/DL (0.70-1.30); GLOMERULAR FILTRATION RATE > 60.0 (>60); GLUCOSE, FASTING 93 MG/DL (60-100); HDL CHOLESTEROL 29.5 MG/DL (>40); MAGNESIUM LEVEL 1.8 MG/DL (1.8-2.4); NON-HDL-C 142.5 MG/DL; POTASSIUM SERUM 4.2 MMOL/L (3.5-5.1); SODIUM LEVEL 140 MMOL/L (136-145); TOTAL PROTEIN 7.3 G/DL (5.7-8.2); TRIGLYCERIDES LEVEL 522 MG/DL (<150)
[2023-02-01 13:46] LABS: HEMOGLOBIN A1c 5.4 % (4.0-6.0)
== END ==
LOC: M LAB 11:56
PROVIDERS: ATTEND Family Medicine
DX: R73.01 Impaired fasting glucose (principal); K21.9 Gastro-esophageal reflux disease without esophagitis; E78.2 Mixed hyperlipidemia

== ENCOUNTER → 2024-03-29 | Outpatient (REF) | payer BC ==
[2024-03-29 11:54] LABS: ALBUMIN 4.4 G/DL (3.2-5.2); ALKALINE PHOSPHATASE 42 U/L (46-116); ALT/SGPT 21 U/L (7.0-40); AST/SGOT 19 U/L (<34); BILIRUBIN,TOTAL 0.6 MG/DL (0.3-1.2); BLOOD UREA NITROGEN 11 MG/DL (9-23); CALCIUM LEVEL 9.3 MG/DL (8.5-10.1); CARBON DIOXIDE LEVEL 28 MMOL/L (20-31); CHLORIDE LEVEL 106 MMOL/L (98-107); CHOLESTEROL LEVEL 186 MG/DL (<200); CHOLESTEROL RISK RATIO 6.07 (<5); CREATININE FOR GFR 1.27 MG/DL (0.70-1.30); GLOMERULAR FILTRATION RATE > 60.0 (>60); GLUCOSE, FASTING 98 MG/DL (60-100); HDL CHOLESTEROL 30.6 MG/DL (>40); LDL CHOLESTEROL 98.2 MG/DL (<100); NON-HDL-C 155.4 MG/DL; POTASSIUM SERUM 4.6 MMOL/L (3.5-5.1); SODIUM LEVEL 138 MMOL/L (136-145); TOTAL PROTEIN 7.2 G/DL (5.7-8.2); TRIGLYCERIDES LEVEL 286 MG/DL (<150)
[2024-03-29 12:46] LABS: HEMOGLOBIN A1c 5.4 % (4.0-6.0)
== END ==
LOC: M SFHCCLAY 07:03
PROVIDERS: ATTEND Family Medicine
DX: E78.2 Mixed hyperlipidemia (principal); K21.9 Gastro-esophageal reflux disease without esophagitis; R73.01 Impaired fasting glucose

== ENCOUNTER 2024-05-02 17:12 | Observation (INO) | payer BC ==
[~2024-05-02] VITALS: Ht 182.9 cm; Wt 100.8 kg
[2024-05-02 20:11] VITALS: BP 142/76; TEMP 98.8; O2SAT 94
[2024-05-02] MEDS ORDERED: MOM 30ML SUSPENSION UDC PO PRN (20:15)
[2024-05-02] MEDS ORDERED: ACETAMINOPHEN TAB 650MG DOSE (2X325MG) PO PRN (20:15)
[2024-05-02] MEDS ORDERED: HOME MED LIST COMPLETE! XX SCH (20:20)
[2024-05-02 20:43] LABS: HEMOGLOBIN 13.1 g/dl (13.5-17.5); MEAN CORPUSCULAR HGB CONC 34.5 g/dl (32.0-36.5); MEAN CORPUSCULAR VOLUME 87.2 fl (80.0-96.0); PLATELET COUNT, AUTOMATED 158 10^3/uL (150-450); RED BLOOD COUNT 4.36 10^6/uL (4.30-6.10); WHITE BLOOD COUNT 13.8 10^3/uL (4.0-10.0)
[2024-05-02 20:55] LABS: INR 1.13; PARTIAL THROMBOPLASTIN TIME 25.6 SECONDS (24.8-34.2); PROTHROMBIN TIME 14.2 SECONDS (12.5-14.5)
[2024-05-02] MEDS: MORPHINE 4 MG/ML 1ML VIAL IV PRN (21:13)
[2024-05-02] MEDS: PIPERACILLIN/TAZOBACTAM SOD 4.5 GM in D5W MINI-BAG PLUS 50 ML IV SCH (21:13)
[2024-05-02 21:15] LABS: ALBUMIN 3.8 G/DL (3.2-5.2); ALKALINE PHOSPHATASE 46 U/L (46-116); ALT/SGPT 15 U/L (7.0-40); AST/SGOT 13 U/L (<34); BILIRUBIN,TOTAL 1.4 MG/DL (0.3-1.2); BLOOD UREA NITROGEN 13 MG/DL (9-23); CALCIUM LEVEL 8.6 MG/DL (8.5-10.1); CARBON DIOXIDE LEVEL 23 MMOL/L (20-31); CHLORIDE LEVEL 106 MMOL/L (98-107); CREATININE FOR GFR 1.33 MG/DL (0.70-1.30); GLOMERULAR FILTRATION RATE > 60.0 (>60); GLUCOSE, FASTING 93 MG/DL (60-100); POTASSIUM SERUM 3.7 MMOL/L (3.5-5.1); SODIUM LEVEL 137 MMOL/L (136-145); TOTAL PROTEIN 6.8 G/DL (5.7-8.2)
[2024-05-02] MEDS ORDERED: ONDANSETRON 4MG 2ML VIAL IV PRN (21:25)
[2024-05-02] MEDS ORDERED: DEXTROSE 50% 50ML SYRINGE IV PRN (22:10)
[2024-05-02] MEDS ORDERED: GLUCAGON INJ 1MG VIAL SC PRN (22:10)
[2024-05-02] MEDS ORDERED: GLUCOSE 4 GM CHEW PO PRN (22:10)
[2024-05-02] MEDS ORDERED: ISOVUE-370 76% 100ML VIAL As Ordered ONE (22:35)
[2024-05-02] MEDS: LR 1,000 ML IV ONE (22:49)
[2024-05-02] MEDS: LR 1,000 ML IV SCH (23:56)
[2024-05-03] VITALS (10 sets, daily range): BP systolic 121–145; BP diastolic 74–90; TEMP 96–99.7; O2SAT 94–98
[2024-05-03] MEDS: ACETAMINOPHEN *IV* 1,000 MG in IV 1 EA IV ONE (05:13)
[2024-05-03 07:43] LABS: BASO % 0.2 % (0.0-1.0); EOS % 0.1 % (0.0-3.0); HEMATOCRIT 36.3 % (42.0-52.0); LYMPH # 0.7 10^3/uL (1.5-5.0); LYMPH % 5.7 % (24.0-44.0); MEAN CORPUSCULAR HEMOGLOBIN 29.3 pg (27.0-33.0); MEAN CORPUSCULAR HGB CONC 33.1 g/dl (32.0-36.5); MEAN CORPUSCULAR VOLUME 88.8 fl (80.0-96.0); MONO # 0.6 10^3/uL (0.0-0.8); MONO % 4.4 % (2.0-8.0); NEUTROPHILS # 11.4 10^3/uL (1.5-8.5); NEUTROPHILS % 89.2 % (36.0-66.0); PLATELET COUNT, AUTOMATED 143 10^3/uL (150-450); RED BLOOD COUNT 4.09 10^6/uL (4.30-6.10); WHITE BLOOD COUNT 12.8 10^3/uL (4.0-10.0)
[2024-05-03 08:17] LABS: ALBUMIN 3.4 G/DL (3.2-5.2); ALKALINE PHOSPHATASE 43 U/L (46-116); ALT/SGPT 13 U/L (7.0-40); AST/SGOT 13 U/L (<34); BILIRUBIN,TOTAL 1.2 MG/DL (0.3-1.2); BLOOD UREA NITROGEN 13 MG/DL (9-23); CALCIUM LEVEL 8.3 MG/DL (8.5-10.1); CARBON DIOXIDE LEVEL 26 MMOL/L (20-31); CHLORIDE LEVEL 105 MMOL/L (98-107); CREATININE FOR GFR 1.31 MG/DL (0.70-1.30); GLOMERULAR FILTRATION RATE > 60.0 (>60); GLUCOSE, FASTING 96 MG/DL (60-100); POTASSIUM SERUM 3.9 MMOL/L (3.5-5.1); SODIUM LEVEL 136 MMOL/L (136-145); TOTAL PROTEIN 6.2 G/DL (5.7-8.2)
[2024-05-03] MEDS: ONDANSETRON 4MG 2ML VIAL IV ONE (09:25)
[2024-05-03] MEDS: ZOSYN 4.5GM VIAL As Ordered ONE (10:42)
[2024-05-03] MEDS ORDERED: propofoL 200 MG/20 ML VIAL As Ordered ONE (10:47)
[2024-05-03] MEDS ORDERED: LIDOCAINE 2% 100MG/5ML SDV (FOR ANES.) As Ordered ONE (10:47)
[2024-05-03] MEDS ORDERED: METOCLOPRAMIDE INJ 10MG/2ML VIAL As Ordered ONE (10:47)
[2024-05-03] MEDS ORDERED: ONDANSETRON 4MG 2ML VIAL As Ordered ONE (10:47)
[2024-05-03] MEDS ORDERED: ACETAMINOPHEN 1000MG 100ML IV BAG As Ordered ONE (10:47)
[2024-05-03] MEDS ORDERED: SUGAMMADEX SODIUM 500 MG/5 ML VIAL (BRIDION) As Ordered ONE (10:47)
[2024-05-03] MEDS ORDERED: fentaNYL 100 MCG/2 ML INJECTION As Ordered ONE (10:47)
[2024-05-03] MEDS ORDERED: MIDAZOLAM INJ 2MG/2ML VIAL As Ordered ONE (10:47)
[2024-05-03] MEDS ORDERED: ROCURONIUM BROMIDE 50MG/5ML VIAL As Ordered ONE (10:47)
[2024-05-03] MEDS ORDERED: dexmedeTOMIDine (4MCG/ML)200MCG/50ML BTL (PRECEDEX) As Ordered ONE (10:47)
[2024-05-03] MEDS: LR 1,000 ML IV SCH (11:50)
[2024-05-03] MEDS ORDERED: fentaNYL 100 MCG/2 ML INJECTION IV PRN (11:50)
[2024-05-03] MEDS ORDERED: HYDROMORPHONE HCL 0.5 MG/ 0.5 ML SYRINGE IV PRN (11:50)
[2024-05-03] MEDS ORDERED: oxyCODONE 5MG TAB PO PRN (11:50)
[2024-05-03] MEDS: PROMETHAZINE 25MG/ML 1ML VIAL IV PRN (12:33)
[2024-05-03] MEDS: ACETAMINOPHEN 500 MG TAB PO SCH (13:55)
[2024-05-03] MEDS: MORPHINE 2 MG/ML 1ML VIAL IV PRN (17:23)
[2024-05-03] MEDS: PERCOCET 5MG/325MG TAB PO PRN (21:12)
[2024-05-04] VITALS: BP 123/74; TEMP 98.4; O2SAT 94
[2024-05-04 04:00] VITALS: BP 120/72; TEMP 98.4; O2SAT 96
[2024-05-04 06:28] LABS: HEMATOCRIT 33.1 % (42.0-52.0); HEMOGLOBIN 10.8 g/dl (13.5-17.5); MEAN CORPUSCULAR HEMOGLOBIN 29.3 pg (27.0-33.0); MEAN CORPUSCULAR HGB CONC 32.6 g/dl (32.0-36.5); MEAN CORPUSCULAR VOLUME 89.9 fl (80.0-96.0); PLATELET COUNT, AUTOMATED 136 10^3/uL (150-450); RED BLOOD COUNT 3.68 10^6/uL (4.30-6.10); WHITE BLOOD COUNT 10.1 10^3/uL (4.0-10.0)
[2024-05-04 06:55] LABS: ALBUMIN 3.1 G/DL (3.2-5.2); ALKALINE PHOSPHATASE 47 U/L (46-116); ALT/SGPT 13 U/L (7.0-40); AST/SGOT 15 U/L (<34); BILIRUBIN,TOTAL 0.5 MG/DL (0.3-1.2); BLOOD UREA NITROGEN 12 MG/DL (9-23); CALCIUM LEVEL 8.3 MG/DL (8.5-10.1); CARBON DIOXIDE LEVEL 29 MMOL/L (20-31); CHLORIDE LEVEL 105 MMOL/L (98-107); CREATININE FOR GFR 1.18 MG/DL (0.70-1.30); GLOMERULAR FILTRATION RATE > 60.0 (>60); GLUCOSE, FASTING 119 MG/DL (60-100); POTASSIUM SERUM 4.2 MMOL/L (3.5-5.1); SODIUM LEVEL 137 MMOL/L (136-145)
[2024-05-04 08:00] VITALS: BP 116/72; TEMP 98.4; O2SAT 96
[2024-05-04 12:00] VITALS: BP 126/74; TEMP 99.1; O2SAT 98
[2024-05-04 20:00] VITALS: BP 125/74; TEMP 98.4; O2SAT 96
[2024-05-04] MEDS: HEPARIN SOD (PORCINE) 5000UNITS/ML 1ML VIAL/SYRINGE SQ SCH (21:40)
[2024-05-05 04:00] VITALS: BP 122/74; TEMP 98.8; O2SAT 98
[2024-05-05 06:37] LABS: HEMATOCRIT 30.7 % (42.0-52.0); MEAN CORPUSCULAR HEMOGLOBIN 29.2 pg (27.0-33.0); MEAN CORPUSCULAR HGB CONC 32.6 g/dl (32.0-36.5); MEAN CORPUSCULAR VOLUME 89.8 fl (80.0-96.0); PLATELET COUNT, AUTOMATED 147 10^3/uL (150-450); RED BLOOD COUNT 3.42 10^6/uL (4.30-6.10); WHITE BLOOD COUNT 6.6 10^3/uL (4.0-10.0)
[2024-05-05 06:57] LABS: ALBUMIN 2.8 G/DL (3.2-5.2); ALKALINE PHOSPHATASE 53 U/L (46-116); ALT/SGPT 15 U/L (7.0-40); AST/SGOT 18 U/L (<34); BILIRUBIN,TOTAL 0.3 MG/DL (0.3-1.2); BLOOD UREA NITROGEN 13 MG/DL (9-23); CALCIUM LEVEL 7.6 MG/DL (8.5-10.1); CARBON DIOXIDE LEVEL 27 MMOL/L (20-31); CHLORIDE LEVEL 107 MMOL/L (98-107); CREATININE FOR GFR 1.28 MG/DL (0.70-1.30); GLOMERULAR FILTRATION RATE > 60.0 (>60); GLUCOSE, FASTING 100 MG/DL (60-100); POTASSIUM SERUM 3.7 MMOL/L (3.5-5.1); SODIUM LEVEL 138 MMOL/L (136-145); TOTAL PROTEIN 5.7 G/DL (5.7-8.2)
[2024-05-05] MEDS ORDERED: AMOX875T2 PO (10:11)
[2024-05-05] MEDS ORDERED: PERCOCET PO (10:11)
[2024-05-05] MEDS ORDERED: MM S100C PO (10:11)
[2024-05-05] MEDS ORDERED: PROB250C PO (10:11)
== END 2024-05-05 12:14 | disposition home or self-care (01) ==
LOC: INTOOBSV 19:57 → M MSPAV 19:57
PROVIDERS: ADMIT General Practice; ATTEND Internal Medicine
DX: K35.32 Acute appendicitis with perforation, localized peritonitis, and gangrene, without abscess (principal); N17.9 Acute kidney failure, unspecified; E78.5 Hyperlipidemia, unspecified; Z79.899 Other long term (current) drug therapy; Z88.8 Allergy status to other drugs, medicaments and biological substances
CPT/HCPCS: 36415; 44970; 74177; 80053; 83605; 85025; 85027; 85610; 85730; 86850; 86900; 86901; 87040; 88304; 96361; 96365; 96366; 96375; 96376; J0131; J0665; J1100; J2250; J2405; J2543; J2550; J2765; J3010; Q9967; S2900

== ENCOUNTER 2025-07-14 07:47 | Day surgery (SDC) | payer BC ==
[~2025-07-14] VITALS: Ht 182.9 cm; Wt 98.5 kg
[~2025-07-14 07:47] MED LIST changes: +AMOX875T2 PO; +LIDOCAINE 2% 100 MG/5 ML SDV (FOR ANES.) As Ordered ONE; +MM S100C PO; +PERCOCET PO; +PROB250C PO
[2025-07-14] MEDS ORDERED: GLYCOPYRROLATE INJ 0.2 MG/ML 2 ML VIAL As Ordered ONE (08:42)
[2025-07-14 08:53] VITALS: TEMP 98.6
[2025-07-14 09:26] VITALS: BP 120/71; O2SAT 97
== END 2025-07-14 09:28 | disposition home or self-care (01) ==
LOC: M OPP 07:47
PROVIDERS: ATTEND Internal Medicine Gastroenterology
DX: K57.30 Diverticulosis of large intestine without perforation or abscess without bleeding (principal); K64.8 Other hemorrhoids; Z86.0100 Personal history of colon polyps, unspecified; Z88.5 Allergy status to narcotic agent; Z88.8 Allergy status to other drugs, medicaments and biological substances; Z79.899 Other long term (current) drug therapy; Z87.891 Personal history of nicotine dependence
CPT/HCPCS: 45378; J1596